=== PATIENT | male | born 1960 | race Two or more races ===

== ENCOUNTER 2020-07-02 15:59 | Inpatient (IN) | payer BC, OTHER ==
[~2020-07-02] VITALS: Ht 167.6 cm; Wt 57.2 kg
[2020-07-02 16:23] LABS: BASOPHILS # (AUTO) 0.1 K/uL (0.0-8.0); BASOPHILS % (AUTO) 0.9 % (0.0-2.0); EOSINOPHILS # (AUTO) 0.3 K/uL (0.0-0.7); EOSINOPHILS % (AUTO) 4.5 % (0.0-7.0); HEMATOCRIT 42.9 % (36.7-47.1); HEMOGLOBIN 14.1 g/dL (12.5-16.3); LYMPHOCYTES # (AUTO) 2.1 K/uL (20.0-40.0); MEAN CORPUSCULAR HEMOGLOBIN 25.6 uug (23.8-33.4); MEAN CORPUSCULAR HGB CONC 33 g/dL (32.5-36.3); MONOCYTES # (AUTO) 0.6 K/uL (2.0-10.0); MONOCYTES % (AUTO) 7.9 % (0.0-11.0); NEUTROPHILS % (AUTO) 56.7 % (38.5-71.5); PLATELET COUNT (AUTO) 230 K/uL (152-348)
[2020-07-02 16:36] LABS: ETHANOL < 3 MG/DL (0-0)
[2020-07-02 16:38] LABS: ACETAMINOPHEN < 2.0 ug/mL (10-30); ALANINE AMINOTRANSFERASE 23 U/L (16-63); ALKALINE PHOSPHATASE 171 U/L (50-136); ASPARTATE AMINOTRANSFERASE 14 U/L (15-37); BILIRUBIN,DIRECT 0.1 mg/dL (0.0-0.2); BILIRUBIN,TOTAL 0.4 mg/dL (0.2-1.0); CARBON DIOXIDE 27 mmol/L (21-32); CHLORIDE 99 mmol/L (98-107); POTASSIUM 4.6 mmol/L (3.5-5.1); TOTAL PROTEIN, SERUM 7.9 g/dL (6.4-8.2); UREA NITROGEN, BLOOD 15 mg/dL (7-18)
[2020-07-02 16:39] LABS: GLUCOSE 508 mg/dL (74-106)
[2020-07-02 16:44] LABS: *BILIRUBIN,URIN NEGATIVE (NEGATIVE); *BLOOD, URINE NEGATIVE (NEGATIVE); *CLARITY,URINE CLEAR (CLEAR); *COLOR,URINE YELLOW (YELLOW); *KETONES,URINE NEGATIVE (NEGATIVE); *UROBILINOGEN,URINE 0.2 E.U./dl (NORMAL); LEUKOCYTE ESTERASE ,URINE NEGATIVE (NEGATIVE); NITRITE, URINE NEGATIVE (NEGATIVE); UGLUCOSE 2+ (NEGATIVE)
[2020-07-02 16:45] LABS: *AMPHETAMINE, URINE NEGATIVE (NEGATIVE); *CANNABINOID, URINE NEGATIVE (NEGATIVE); *COCCAINE, URINE NEGATIVE (NEGATIVE); *OPIATE, URINE NEGATIVE (NEGATIVE); *PHENCYCLIDINE SCREEN,URINE NEGATIVE (NEGATIVE)
[2020-07-02] MEDS ORDERED: INSULIN REGULAR, HUMAN 300 UNIT/3 ML VIAL SQ ONE (16:45)
[2020-07-02] MEDS ORDERED: IV NORMAL SALINE 1000 ML BAG IV ONE (16:45)
[2020-07-02] MEDS ORDERED: INSULIN REGULAR, HUMAN 300 UNIT/3 ML VIAL ONE (17:48)
--- NOTE | 2020-07-02 19:03 | NUR ---
Pt NAD VSS RA. with R ac g22 intact saline lock. Report given to tissue recovery technicianautomotive electrician.
--- NOTE | 2020-07-02 19:48 | NUR ---
Patient in room sleeping with no distress noted.
--- NOTE | 2020-07-02 19:53 | NUR ---
Medically cleared by Dr Walters.
--- NOTE | 2020-07-02 20:08 | NUR ---
IV removed. Catheter intact and site benign. Pressure and 4x4 gauze applied to site. No bleeding noted.
--- NOTE | 2020-07-02 20:11 | NUR ---
TRANSFER TO U VIA WHEELCHAIR.
[2020-07-02] MEDS ORDERED: ZOLPIDEM 5 MG TABLET PO PRN (20:30)
[2020-07-02] MEDS ORDERED: MAGNESIUM HYDROXIDE 30 ML LIQUID UDC PO PRN (20:30)
[2020-07-02] MEDS ORDERED: MAG HYDROX/AL HYDROX/SIMETH 30 ML LIQUID UDC PO PRN (20:30)
[2020-07-02] MEDS ORDERED: BLOOD SUGAR DIAGNOSTIC 1 EACH STRIP VI ONE (20:30)
[2020-07-02] MEDS ORDERED: ACETAMINOPHEN 325 MG TABLET PO PRN (20:30)
[2020-07-02] MEDS ORDERED: LORAZEPAM 1 MG TABLET PO PRN (20:30)
[2020-07-02 20:39] VITALS: BP 115/70
--- NOTE | 2020-07-02 22:00 | NUR ---
Admission Note: 60 yr old Vienn[place] male brought to MHU from ER via wheelchair accompanied by ER staff. Pt admitted on a 5150 for DTS, DTO, and GD under the care of Dr. Buckley and Dr Ayon with a dx of Psychosis. According to the 5150, Patient has a history of schizophrenia, has been non compliant with medication. Patient's sister stated the after the recent passing of their parents he has become more paranoid and aggressive, combative, and bizarre behavior responding to internal stimuli with visual hallucinations. Pt's siblings are concerned for his health. Sister Candace requested a psychiatric evaluation called 911 because patient believes that someone is out to harm him, as a result patient has been hiding in his room without regard for self-care. Pt was fearful, confused, and uncooperative, as well as unwilling to respond coherently to admission questions upon arrival to the unit, Patient's Vital Signs stable, denies pain, and in no apparent physical distress. Denies suicidal ideation or intent. Pt appears to reflect what is written on the Hold.
[2020-07-02] MEDS ORDERED: DEXTROSE 50% 50 ML DISP.SYRIN IV PRN (23:00)
[2020-07-02] MEDS: BLOOD SUGAR DIAGNOSTIC 1 EACH STRIP VI SCH (23:00)
[2020-07-03] MEDS: BLOOD SUGAR DIAGNOSTIC 1 EACH STRIP VI SCH ×4 (06:33→20:51)
[2020-07-03 07:43] VITALS: BP 101/58
[2020-07-03] MEDS: INSULIN REGULAR, HUMAN 300 UNIT/3 ML VIAL SQ PRN ×3 (08:15→17:52)
[2020-07-03] MEDS: NICOTINE 14 MG/24HR PATCH TD SCH (08:27)
[2020-07-03 08:54] LABS: BILIRUBIN,TOTAL 0.7 mg/dL (0.2-1.0); CREATININE 0.9 mg/dL (0.6-1.3); POTASSIUM 3.8 mmol/L (3.5-5.1); TOTAL PROTEIN, SERUM 6.8 g/dL (6.4-8.2)
--- NOTE | 2020-07-03 09:08 | NUR ---
Firearms Report: Supervisor [place] completed and submitted a [employer] firearms report for 5150 DTS, DTO, and GD certification. A copy of report has been placed in patient chart.
--- NOTE | 2020-07-03 09:51 | NUR ---
LEN Initial Discharge Plan: Patient currently resides at home [address] [place] [address]. Patient's sister Candace Garrison ([phone]) and brother Clifton Macedo ([phone]) are involved in his care. Patient will return home upon discharge. LEN will continue to work with patient, family, and MD to ensure a safe and proper discharge plan.
--- NOTE | 2020-07-03 10:04 | NUR ---
SW Family Contact: SW spoke with patient's sister, Candace Garrison ([phone]) who stated that she is the patient's DPOA and will faxed this SW the documents. SW discussed treatment and discharge plan with Candace. Candace's main concerns was the patient not taking his medications. This SW assured that we will work with the patient to take his medications and take certain protocols if he refuses. Candace stated that upon discharge she will take the patient home.
--- NOTE | 2020-07-03 10:14 | NUR ---
SW Brief Substance Abuse Intervention: Patient was provided with a brief substance abuse intervention and referred to the following substance abuse programs for smoking cessation, patient was referred to [place] [employer] [facility] [employer] 800-LUNGUSA and [place] [employer] ([phone]). Patient was also referred to the Nicotine Anonymous meeting ([phone]).
[2020-07-03 10:45] LABS: IRON, SERUM 65 ug/dL (50-175)
[2020-07-03 10:57] LABS: MAGNESIUM 2.3 mg/dL (1.8-2.4); PHOSPHOROUS 3.1 mg/dL (2.5-4.9)
[2020-07-03 11:00] LABS: THYROID STIMULATING HORMONE 0.657 mIU/mL (0.358-3.740)
[2020-07-03 11:09] LABS: URIC ACID 4.7 mg/dL (3.5-7.2)
--- NOTE | 2020-07-03 11:43 | NUR ---
LEN Discharge Planning/UR: LEN received a call from Evi Smith from [employer] ([phone]) regarding discharge planning and aftercare. Evi stated that she will provide psychiatry appointment for the patient prior to discharge as well as home health health services and counseling services.
[2020-07-03] MEDS: METFORMIN HCL 500 MG TABLET PO SCH ×2 (12:13→17:58)
--- NOTE | 2020-07-03 12:37 | NUR ---
Gps/Electromechanisms Design Drafter- Isolative, , encouraged attending his group therapy, guarded, answers to simplae Addendum: 07/03/20 at 1239 by MARIANA PENG LVN Error in charting
--- NOTE | 2020-07-03 12:47 | NUR ---
UR NOTE: Auth # [id number] obtained from [employer] @ [phone] 5 days approved from 07/02/2020 to 07/06/2020 Call Julissa Taylor Mgr Assigned @ [phone] Next review due on 07/07/2020
--- NOTE | 2020-07-03 14:00 | NUR ---
Gps/Architectural Drafter- Isolative, stayed in his room in bed most of the day, compliant with routine meds. Not interactive, guarded. monitored needs.
--- NOTE | 2020-07-03 14:13 | NUR ---
LEN Family Contact: SW received a fax from patient's sister, Candace Garrison ([phone]) stating she is the DPOA however it is not a notarize document. The document states that the patient gives permission for Candace to be contacted and make decisions on his behalf. A copy has been placed in the patient's chart.
[2020-07-03 16:27] VITALS: BP 93/54
[2020-07-03] MEDS ORDERED: ASPI81TA31 PO (17:03)
[2020-07-03] MEDS ORDERED: PIOG45TA5 PO (17:04)
[2020-07-03] MEDS ORDERED: METF-440 PO (17:06)
[2020-07-03] MEDS ORDERED: OLAN15TA3 PO (17:06)
--- NOTE | 2020-07-03 17:11 | NUR ---
received medication update from patients MD luis a made aware, will continue follow up
[2020-07-03] MEDS ORDERED: METFORMIN HCL 500 MG TABLET PO SCH (18:00)
[2020-07-03 20:00] VITALS: BP 99/62
[2020-07-03] MEDS: INSULIN REGULAR, HUMAN 300 UNITS/3 ML VIAL SQ PRN (20:54)
[2020-07-03] MEDS: ATORVASTATIN 10 MG TABLET PO SCH (20:55)
[2020-07-03] MEDS: OLANZAPINE 5 MG TABLET PO SCH (20:55)
[2020-07-03 21:00] VITALS: BP 114/63
[2020-07-04] MEDS: BLOOD SUGAR DIAGNOSTIC 1 EACH STRIP VI SCH ×4 (06:32→20:40)
[2020-07-04 07:30] VITALS: BP 99/63
[2020-07-04] MEDS: ASPIRIN 81 MG TAB.CHEW PO SCH (08:31)
[2020-07-04] MEDS: METFORMIN HCL 500 MG TABLET PO SCH ×2 (08:31→17:35)
[2020-07-04] MEDS: OLANZAPINE 5 MG TABLET PO SCH ×2 (08:31→20:40)
[2020-07-04] MEDS: NICOTINE 14 MG/24HR PATCH TD SCH (08:32)
[2020-07-04] MEDS: INSULIN REGULAR, HUMAN 300 UNIT/3 ML VIAL SQ PRN ×2 (08:38→17:37)
[2020-07-04 09:43] LABS: BASOPHILS # (AUTO) 0.1 K/uL (0.0-8.0); BASOPHILS % (AUTO) 0.8 % (0.0-2.0); EOSINOPHILS # (AUTO) 0.4 K/uL (0.0-0.7); EOSINOPHILS % (AUTO) 5.3 % (0.0-7.0); HEMATOCRIT 39.3 % (36.7-47.1); HEMOGLOBIN 12.9 g/dL (12.5-16.3); LYMPHOCYTES # (AUTO) 2.7 K/uL (20.0-40.0); LYMPHOCYTES % (AUTO) 39.9 % (20.5-51.5); MEAN CORPUSCULAR HEMOGLOBIN 25.9 uug (23.8-33.4); MEAN CORPUSCULAR HGB CONC 33 g/dL (32.5-36.3); MEAN CORPUSCULAR VOLUME 78.6 fL (73.0-96.2); MONOCYTES # (AUTO) 0.4 K/uL (2.0-10.0); MONOCYTES % (AUTO) 6.1 % (0.0-11.0); NEUTROPHILS # (AUTO) 3.2 K/uL (1.8-8.9); NEUTROPHILS % (AUTO) 47.9 % (38.5-71.5); PLATELET COUNT (AUTO) 214 K/uL (152-348); RED BLOOD CELL COUNT(AUTO) 4.99 MIL/uL (4.06-5.63); WHITE BLOOD COUNT (AUTO) 6.7 K/uL (3.6-10.2)
[2020-07-04] MEDS: PIOGLITAZONE HCL 15 MG TABLET PO SCH (10:08)
[2020-07-04 10:15] LABS: CREATININE 0.9 mg/dL (0.6-1.3)
[2020-07-04 16:00] VITALS: BP 95/58
[2020-07-04 20:00] VITALS: BP 89/56
[2020-07-04] MEDS: ATORVASTATIN 10 MG TABLET PO SCH (20:40)
[2020-07-04] MEDS: INSULIN REGULAR, HUMAN 300 UNITS/3 ML VIAL SQ PRN (20:45)
[2020-07-05] MEDS: BLOOD SUGAR DIAGNOSTIC 1 EACH STRIP VI SCH ×4 (06:14→21:17)
--- NOTE | 2020-07-05 06:31 | NUR ---
GPS/Rn - Pt was received in bed, lying and responded verbally, denied SI/HI with no behavior noted. Patient is cooperative with blood sugar check and took medications. Calm but noted with some forms of paranoid and noted a bit of responding to internal stimuli. Patient blood sugar am was 147dl. will receive 2 unit insulin before breakfast. Patient took shower and was cooperative. Will monitor and anticipate any changes.
[2020-07-05 07:30] VITALS: BP 107/70
[2020-07-05] MEDS: ASPIRIN 81 MG TAB.CHEW PO SCH (08:44)
[2020-07-05] MEDS: NICOTINE 14 MG/24HR PATCH TD SCH (08:44)
[2020-07-05] MEDS: METFORMIN HCL 500 MG TABLET PO SCH ×2 (08:44→17:47)
[2020-07-05] MEDS: OLANZAPINE 5 MG TABLET PO SCH ×2 (08:44→21:17)
[2020-07-05] MEDS: PIOGLITAZONE HCL 15 MG TABLET PO SCH (08:54)
[2020-07-05] MEDS: INSULIN REGULAR, HUMAN 300 UNIT/3 ML VIAL SQ PRN ×2 (12:26→16:50)
[2020-07-05 15:17] VITALS: BP 101/64
[2020-07-05 20:00] VITALS: BP 101/62
--- NOTE | 2020-07-05 21:00 | NUR ---
Received patient in his room in bed. he is noted sleeping but easily arousable. He is noted A/O x 2. Pt noted with poor insight and judgment as to the reason for his admission to MHU. he is noted Isolative, blunted affect, depressed mood. He denied SI/HI/VH/AH. he is compliant with medication regiment. Accu check 171, 3 Units regular insulin sliding scale given. PO fluids and snacks were given to patient. V/S stable at this time. Patient is encourage to verbalized feelings. he is also reassured for his safety. safety and fall precaution in place. will continue to monitor.
[2020-07-05] MEDS: ATORVASTATIN 10 MG TABLET PO SCH (21:17)
[2020-07-05] MEDS: INSULIN REGULAR, HUMAN 300 UNITS/3 ML VIAL SQ PRN (21:18)
[2020-07-06] MEDS: BLOOD SUGAR DIAGNOSTIC 1 EACH STRIP VI SCH ×4 (07:03→20:12)
[2020-07-06 07:30] VITALS: BP 108/69
[2020-07-06 07:54] LABS: CREATININE 0.9 mg/dL (0.6-1.3); POTASSIUM 4.4 mmol/L (3.5-5.1)
[2020-07-06] MEDS: INSULIN REGULAR, HUMAN 300 UNIT/3 ML VIAL SQ PRN ×3 (08:02→16:22)
[2020-07-06] MEDS: METFORMIN HCL 500 MG TABLET PO SCH ×2 (08:03→17:09)
[2020-07-06] MEDS: PIOGLITAZONE HCL 15 MG TABLET PO SCH (08:03)
[2020-07-06] MEDS: ASPIRIN 81 MG TAB.CHEW PO SCH (08:03)
[2020-07-06] MEDS: OLANZAPINE 5 MG TABLET PO SCH ×2 (08:03→20:12)
[2020-07-06] MEDS: NICOTINE 14 MG/24HR PATCH TD SCH (08:04)
[2020-07-06 08:08] LABS: BASOPHILS % (AUTO) 0.7 % (0.0-2.0); EOSINOPHILS # (AUTO) 0.4 K/uL (0.0-0.7); EOSINOPHILS % (AUTO) 5.8 % (0.0-7.0); HEMATOCRIT 40.8 % (36.7-47.1); HEMOGLOBIN 13.5 g/dL (12.5-16.3); LYMPHOCYTES # (AUTO) 2.1 K/uL (20.0-40.0); LYMPHOCYTES % (AUTO) 33.6 % (20.5-51.5); MEAN CORPUSCULAR HEMOGLOBIN 26.1 uug (23.8-33.4); MEAN CORPUSCULAR HGB CONC 33 g/dL (32.5-36.3); MEAN CORPUSCULAR VOLUME 78.8 fL (73.0-96.2); MONOCYTES # (AUTO) 0.5 K/uL (2.0-10.0); MONOCYTES % (AUTO) 8.4 % (0.0-11.0); NEUTROPHILS # (AUTO) 3.2 K/uL (1.8-8.9); NEUTROPHILS % (AUTO) 51.5 % (38.5-71.5); PLATELET COUNT (AUTO) 226 K/uL (152-348); RED BLOOD CELL COUNT(AUTO) 5.18 MIL/uL (4.06-5.63); WHITE BLOOD COUNT (AUTO) 6.2 K/uL (3.6-10.2)
[2020-07-06 16:00] VITALS: BP 92/58
[2020-07-06 19:57] VITALS: BP 112/62
[2020-07-06] MEDS: ATORVASTATIN 10 MG TABLET PO SCH (20:12)
[2020-07-06] MEDS: INSULIN REGULAR, HUMAN 300 UNITS/3 ML VIAL SQ PRN (20:16)
[2020-07-07] MEDS: BLOOD SUGAR DIAGNOSTIC 1 EACH STRIP VI SCH ×4 (06:38→20:20)
[2020-07-07] MEDS: PIOGLITAZONE HCL 15 MG TABLET PO SCH (08:38)
[2020-07-07] MEDS: ASPIRIN 81 MG TAB.CHEW PO SCH (08:39)
[2020-07-07] MEDS: NICOTINE 14 MG/24HR PATCH TD SCH (08:39)
[2020-07-07] MEDS: OLANZAPINE 5 MG TABLET PO SCH ×2 (08:39→20:13)
[2020-07-07] MEDS: METFORMIN HCL 500 MG TABLET PO SCH ×2 (08:39→17:59)
[2020-07-07] MEDS: INSULIN REGULAR, HUMAN 300 UNIT/3 ML VIAL SQ PRN ×2 (08:40→16:40)
[2020-07-07 09:26] VITALS: BP 94/56
--- NOTE | 2020-07-07 10:08 | NUR ---
UR Note: LEN received a call from Evi Smith from [employer] ([phone]) and LEN informed her that the pt will have a review today and based off of that SW will have a better idea on pts discharge date. LEN stated that pt will need a psychiatrist at the time of discharge.
--- NOTE | 2020-07-07 10:30 | NUR ---
UR Note: LEN called Julissa Taylor Mgr Assigned @ [phone] Auth # [id number] obtained from [facility] [facility] @ [phone] Addendum: 07/07/20 at 1033 by LEN DELGADO UR Note: LEN called Julissa Taylor Mgr ([phone]) and left a detailed clinical review on her voicemail. LEN is awaiting a call back with information on the pts authorization.
--- NOTE | 2020-07-07 10:33 | NUR ---
PC Hearing: Pts [phone] hold was upheld for grave disability.
--- NOTE | 2020-07-07 10:38 | NUR ---
Family Contact: LEN called the patient's sister, Candace Garrison ([phone]), and informed her of the pts PC hearing results being upheld and also informed her that the pt has a review for his insurance company today in which case the pt may be authorized to stay a few more days or not. LEN stated that she will keep her updated.
[2020-07-07 15:20] VITALS: BP 98/63
--- NOTE | 2020-07-07 15:33 | NUR ---
UR NOTE: Auth # [id number] obtained from [employer] @ [phone]. Julissa Taylor Mgr Assigned @ [phone] approved 3 additional days from 07/07/2020 to 07/09/2020 with a review due on 07/09.
--- NOTE | 2020-07-07 15:34 | NUR ---
Family Contact: SW called the patient's sister, Candace Garrison ([phone]), and informed her that the pt is authorized to stay until 07/09 which means he can be discharged on 07/10. SW stated that if the pt has not shown enough improvement at that time then the SW will ask for additional time from the insurance company. Pts sister stated that she wants the pt to stay longer.
[2020-07-07 20:07] VITALS: BP 101/62
[2020-07-07] MEDS: ATORVASTATIN 10 MG TABLET PO SCH (20:14)
[2020-07-07] MEDS: INSULIN REGULAR, HUMAN 300 UNITS/3 ML VIAL SQ PRN (20:28)
[2020-07-08] MEDS: BLOOD SUGAR DIAGNOSTIC 1 EACH STRIP VI SCH ×4 (06:36→21:27)
[2020-07-08 07:30] VITALS: BP 97/54
[2020-07-08] MEDS: OLANZAPINE 5 MG TABLET PO SCH ×2 (08:27→21:27)
[2020-07-08] MEDS: METFORMIN HCL 500 MG TABLET PO SCH ×2 (08:27→17:01)
[2020-07-08] MEDS: ASPIRIN 81 MG TAB.CHEW PO SCH (08:29)
[2020-07-08] MEDS: PIOGLITAZONE HCL 15 MG TABLET PO SCH (08:29)
[2020-07-08] MEDS: NICOTINE 14 MG/24HR PATCH TD SCH (08:29)
--- NOTE | 2020-07-08 10:48 | NUR ---
UR Note: SW received a call from Evi Smith from [employer] ([phone]) and she provided the SW with follow up appointments. [facility] [phone]; fax: [phone] [address] [place] [address] 08/05/19 at 3:15pm with Asya Foley (therapist) telehealth 08/29/[address] Palacio (psychiatrist) in person
[2020-07-08] MEDS: INSULIN REGULAR, HUMAN 300 UNIT/3 ML VIAL SQ PRN ×2 (12:22→17:10)
[2020-07-08 16:29] VITALS: BP 99/55
[2020-07-08 19:55] VITALS: BP 101/54
[2020-07-08] MEDS: ATORVASTATIN 10 MG TABLET PO SCH (21:28)
[2020-07-09] MEDS: BLOOD SUGAR DIAGNOSTIC 1 EACH STRIP VI SCH ×4 (06:05→21:27)
--- NOTE | 2020-07-09 06:20 | NUR ---
Patient first observed lying in bed with disheveled appearance, flat affect, low mood. Guarded on approach, oriented to name, otherwise disorganized. Patient compliant with medication BS 188 this a.m. slept a total of eight hours. Will continue to monitor for safety.
[2020-07-09 07:30] VITALS: BP 105/69
[2020-07-09] MEDS: METFORMIN HCL 500 MG TABLET PO SCH ×2 (08:20→17:01)
[2020-07-09] MEDS: OLANZAPINE 5 MG TABLET PO SCH ×2 (08:20→21:26)
[2020-07-09] MEDS: ASPIRIN 81 MG TAB.CHEW PO SCH (08:21)
[2020-07-09] MEDS: NICOTINE 14 MG/24HR PATCH TD SCH (08:21)
[2020-07-09] MEDS: PIOGLITAZONE HCL 15 MG TABLET PO SCH (08:21)
[2020-07-09] MEDS: INSULIN REGULAR, HUMAN 300 UNIT/3 ML VIAL SQ PRN (11:21)
--- NOTE | 2020-07-09 11:41 | NUR ---
Family Contact: LEN called the patient's sister, Candace Garrison ([phone]), and informed her that the pt is going to be discharged the next day and she stated that she would arrive around 5pm with some new clothes and take the pt home.
--- NOTE | 2020-07-09 13:23 | NUR ---
UR Note: LEN faxed the home health request form to [facility] with attention to Evi to the fax number: [phone].
[2020-07-09 16:02] VITALS: BP 119/67
--- NOTE | 2020-07-09 17:32 | NUR ---
Received patient AOx2-3,who was very guarded and quite evasive. Speech: Restricted speech with thought blocking. Mood and affect: Guarded, restricted mood with flat affect. Denied suicidal ideation. Denied homicidal ideation. Denied history of mood swing. Sleep and appetite: Denied problem with sleeping. Denied problem with his appetite. Thought process and content: Positive auditory hallucination,positive paranoid delusion. Positive delusion of persecution. Did not answer question about idea of reference. Intellectual capacity: The patient is alert,oriented for person and situation, but not for place nor for time.patient calm cooperative, compliant with medication, patient being monitored q15 minutes for safety, stayed mostly in his room, answer question appropriately, patient aware of his DC planning tomorrow, patient euthymic mood , blood sugar was monitored, and his accucheck in afternoon WNL, patient encourage to join the group and participate, no sign of any distress at this time, free of any injury , will continue monitor
[2020-07-09 20:00] VITALS: BP 110/68
[2020-07-09] MEDS: ATORVASTATIN 10 MG TABLET PO SCH (21:26)
[2020-07-09] MEDS: INSULIN REGULAR, HUMAN 300 UNITS/3 ML VIAL SQ PRN (22:00)
[2020-07-10 07:30] VITALS: BP 109/68
[2020-07-10] MEDS: BLOOD SUGAR DIAGNOSTIC 1 EACH STRIP VI SCH ×3 (08:02→16:13)
[2020-07-10] MEDS: ASPIRIN 81 MG TAB.CHEW PO SCH (08:12)
[2020-07-10] MEDS: NICOTINE 14 MG/24HR PATCH TD SCH (08:12)
[2020-07-10] MEDS: METFORMIN HCL 500 MG TABLET PO SCH ×2 (08:12→17:26)
[2020-07-10] MEDS: OLANZAPINE 5 MG TABLET PO SCH (08:12)
[2020-07-10] MEDS: PIOGLITAZONE HCL 15 MG TABLET PO SCH (08:20)
--- NOTE | 2020-07-10 08:49 | NUR ---
Discharge Note: Pt will be discharged back to his home located at [address] [place] [address]. Pt will be picked up by his sister, Marysol ([phone]), around 5pm. Upon discharge, the pt appears to be in a euthymic mood and presents with a calm affect. Pt appears to be alert and oriented x4 (time, place, self and situation). Pt denies both suicidal and homicidal ideation as well as auditory and visual hallucinations. Pt appears to be well groomed and appropriately dressed. Pt appears to be ambulatory with an unsteady gait. Pt will continue to be under the care of his psychiatrist, Dr. Palacio, located at [facility] address: [address] [place] [id number]; ([phone]); fax of records was sent to: [phone]. Pt has an appointment on 08/29/19 at 3pm. Pt also has an appointment with his therapist, Asya Foley, at the same location ([facility]) on 08/05/19 at 3:15pm. Pt will be under the care of his certified nurse operating room, Dr. Perry, located at [address] [place] [address]; . The multidisciplinary exit care form was done, printed, signed, and given to the patient.
--- NOTE | 2020-07-10 09:00 | NUR ---
PATIENT ALERT ORIENTED, PREFER TO STAY IN HIS ROOM, REFUSED TO ATTEND ACTIVITY. PATIENT HAS GOOD APPETITE, NO S/S OF HYPO HYPERGYLCEMIA CONT TO MONITOR.
[2020-07-10] MEDS: INSULIN REGULAR, HUMAN 300 UNIT/3 ML VIAL SQ PRN (11:32)
[2020-07-10 16:00] VITALS: BP 101/66
--- NOTE | 2020-07-10 18:38 | NUR ---
PATIENT WAS DISCHARGE HOME WITH SISTER. SISTER CAME TO MALLET CUTTER THE PATIENT VIA PRIVATE CAR. PATIENT PROVIDED WITH THE DISCHARGE INSTRUCTIONS, MARIANA OSPINA GAVE ALL PATIENT PAPER WORK PLUS PRESCRIPTION ORDER TO PATIENT SISTER. PATIENT TOOK ALL BELONGINGS.
--- NOTE | 2020-07-11 14:13 | NUR ---
UR Note: LEN called Julissa Taylor Mgr Assigned @ [phone] Auth # [id number] and left a discharge clinical on her voicemail.
== END 2020-07-10 18:45 | disposition home or self-care (01) | DRG 885 ==
LOC: ER 16:02 → GPS 20:00
PROVIDERS: ADMIT Psychiatry & Neurology Psychiatry; ATTEND Internal Medicine
DX: F20.0 Paranoid schizophrenia (principal); E11.65 Type 2 diabetes mellitus with hyperglycemia; Z91.14 Patient's other noncompliance with medication regimen; E78.5 Hyperlipidemia, unspecified; E86.1 Hypovolemia; R62.7 Adult failure to thrive; Z73.6 Limitation of activities due to disability; Z68.20 Body mass index [BMI] 20.0-20.9, adult; Z79.4 Long term (current) use of insulin; G31.84 Mild cognitive impairment of uncertain or unknown etiology
CPT/HCPCS: 36415; 71045; 82533; 83550; 83735; 84100; 84300; 84443; 84550; 85025; 93005; A4663; G0480; J1815